=== PATIENT | male | born 1995 | race Two or more races ===

== ENCOUNTER 2024-10-31 21:51 | Emergency (ER) | payer SELFPAY ==
[~2024-10-31] VITALS: Ht 185.4 cm; Wt 79.4 kg
[2024-10-31 22:57] VITALS: BP 127/74; TEMP 98; O2SAT 99
== END 2024-11-01 00:11 | disposition home or self-care (01) ==
LOC: ER 21:55
DX: S83.8X2A Sprain of other specified parts of left knee, initial encounter (principal); Z60.2 Problems related to living alone; X58.XXXA Exposure to other specified factors, initial encounter; Y93.67 Activity, basketball; Y92.89 Other specified places as the place of occurrence of the external cause; Y99.8 Other external cause status